=== PATIENT | female | born 1960 | race Caucasian/White ===

== ENCOUNTER 2018-03-21 12:17 | Observation (INO) | payer BC, OTHER ==
[~2018-03-21] VITALS: Ht 172.7 cm; Wt 81.6 kg
[~2018-03-21 12:17] MED LIST: ALPR0.25
[2018-03-21] MEDS ORDERED: ASPIRIN 81 MG TABLET CHEW ONE (12:55)
[2018-03-21] MEDS ORDERED: SODIUM CHLORIDE FLUSH 10ML SYR IVF ONE (13:00)
[2018-03-21] MEDS ORDERED: ASPIRIN 81 MG TABLET CHEW PO ONE (13:00)
[2018-03-21 13:04] LABS: BASOPHILS # (AUTO) 0.03 x10^3/uL (0-0.1); BASOPHILS % (AUTO) 0 % (0-1); EOSINOPHILS # (AUTO) 0.04 x10^3/uL (0-0.4); EOSINOPHILS % (AUTO) 1 % (1-7); LYMPHOCYTES # (AUTO) 2.58 x10^3/uL (1-3.4); LYMPHOCYTES % (AUTO) 35 % (22-44); MD NO; MEAN CORPUSCULAR HEMOGLOBIN 30.6 pg (27.0-34.8); MEAN CORPUSCULAR HGB CONC 34.4 g/dL (32.4-35.8); MEAN CORPUSCULAR VOLUME 89.1 fL (80-100); MEAN PLATELET VOLUME 9.5 fL (7.4-10.4); MONOCYTES # (AUTO) 0.41 x10^3/uL (0.2-0.8); MONOCYTES % (AUTO) 6 % (2-9); NEUTROPHILS # (AUTO) 4.33 x10^3/uL (1.8-6.8); NEUTROPHILS % (AUTO) 59 % (42-75); PLATELET COUNT 231 x10^3/uL (130-400); RED BLOOD COUNT 5.29 x10^6/uL (3.82-5.3)
[2018-03-21 13:10] LABS: ALBUMIN 4.1 g/dL (3.4-5.0); ANION GAP 8 mmol/L (5-15); CHLORIDE 109 mmol/L (98-107); CREATININE 0.72 mg/dL (0.55-1.02)
[2018-03-21 13:15] LABS: TROPONIN I < 0.015 ng/mL (0.000-0.045)
[2018-03-21] MEDS ORDERED: LORA-445 PO (17:05)
[2018-03-21] MEDS ORDERED: ONDANSETRON 2MG/ML, 2ML IVPush PRN (18:00)
[2018-03-21] MEDS ORDERED: ENOXAPARIN 40 MG/0.4 ML SQ SCH (18:00)
[2018-03-21] MEDS ORDERED: ACETAMINOPHEN 325 MG TABLET PO PRN (18:00)
[2018-03-21 18:06] VITALS: BP 85/50
[2018-03-21 20:00] VITALS: BP 107/73
[2018-03-21 20:01] VITALS: BP 117/81
[2018-03-21 20:02] VITALS: BP 118/72
[2018-03-21 21:17] LABS: TROPONIN I < 0.015 ng/mL (0.000-0.045)
[2018-03-22 03:02] VITALS: BP 93/63
[2018-03-22 03:33] LABS: HCT (SEDRATE) 44.6 % (34.6-47.8)
[2018-03-22 03:46] LABS: CHOLESTEROL, TOTAL 172 mg/dL (140-239); TRIGLYCERIDES 164 mg/dL (50-200); VLDL CHOLESTEROL 33 mg/dL (0-25)
[2018-03-22 03:49] LABS: CHOL/HDL RATIO 4.6; HDL CHOL % 22 % (28-40); HDL CHOLESTEROL (DIRECT) 37 mg/dL (40-60); LDL CHOLESTEROL,CALCULATED 102 mg/dL (54-169); LDL/HDL RATIO 2.8 (0.5-3.0); TROPONIN I < 0.015 ng/mL (0.000-0.045)
[2018-03-22 07:45] VITALS: BP_SYST 101; BP_SYST 94; BP_SYST 95; BP_DIAS 62; BP_DIAS 63; BP_DIAS 70
[2018-03-22] MEDS ORDERED: REGADENOSON 0.4 MG/5 ML SYRINGE ONE (09:17)
[2018-03-22] MEDS ORDERED: FLUTICASONE NASAL SPRAY 16GM NAS SCH (11:30)
[2018-03-22] MEDS ORDERED: CYANOCOBALOMIN 100MCG TABLET PO SCH (11:30)
[2018-03-22] MEDS ORDERED: CYANOCOBALAMIN 1,000 MCG/ML, 1ML IM ONE (11:30)
[2018-03-22] MEDS ORDERED: LORATADINE 10 MG TABLET PO SCH (11:30)
[2018-03-22] MEDS ORDERED: FAMOTIDINE 20 MG TABLET PO SCH (11:30)
[2018-03-22] MEDS ORDERED: OMNIPAQUE 350 MG/ML, 100ML BOTTLE ONE (11:51)
[2018-03-22 13:24] VITALS: BP 117/78
[2018-03-22] MEDS ORDERED: FLUT16SP NAS (16:05)
[2018-03-22] MEDS ORDERED: CYAN100T PO (16:05)
[2018-03-22] MEDS ORDERED: FAMO20TA7 PO (16:05)
[2018-03-22] MEDS ORDERED: LORA10TA75 PO (16:05)
== END 2018-03-22 17:10 | disposition home or self-care (01) ==
LOC: ED 13:51 → EDIP 16:47 → SUATTDRO 17:08 → 5SO 18:03 → DCLOUNGE 03-22 17:00
PROVIDERS: ADMIT Internal Medicine; ATTEND Internal Medicine
DX: R07.89 Other chest pain (principal); R53.1 Weakness; R06.02 Shortness of breath; F41.1 Generalized anxiety disorder; J30.2 Other seasonal allergic rhinitis; M40.50 Lordosis, unspecified, site unspecified; M50.30 Other cervical disc degeneration, unspecified cervical region; F17.210 Nicotine dependence, cigarettes, uncomplicated; Z23 Encounter for immunization
CPT/HCPCS: 36415; 70486; 71045; 71275; 72125; 78452; 80048; 80061; 82040; 82306; 82607; 83880; 84443; 84484; 85025; 85651; 90471; 90656; 93005; 93017; 96372; 99285; A9502; C9898; G0378; J1650; J2785; J3420; Q9967

== ENCOUNTER 2018-04-01 15:28 | Emergency (ER) | payer OTHER ==
[~2018-04-01] VITALS: Ht 172.7 cm; Wt 77.5 kg
[~2018-04-01 15:28] MED LIST changes: +CYAN100T PO; +FAMO20TA7 PO; +FLUT16SP NAS; +LORA-445 PO; +LORA10TA75 PO
[2018-04-01 15:58] LABS: MEAN CORPUSCULAR HEMOGLOBIN 29.5 pg (27.0-34.8); MEAN CORPUSCULAR HGB CONC 32.9 g/dL (32.4-35.8); MEAN CORPUSCULAR VOLUME 89.7 fL (80-100); MEAN PLATELET VOLUME 8.9 fL (7.4-10.4); PLATELET COUNT 263 x10^3/uL (130-400); RED BLOOD COUNT 5.27 x10^6/uL (3.82-5.3)
[2018-04-01] MEDS ORDERED: LORazepam 2 MG/ML, 1ML IVPush ONE ×2 (16:00→17:30)
[2018-04-01] MEDS ORDERED: SODIUM CHLORIDE FLUSH 10ML SYR IVF ONE (16:00)
[2018-04-01] MEDS ORDERED: LORazepam 2 MG/ML, 1ML ONE ×2 (16:00→17:17)
[2018-04-01 16:11] LABS: ALANINE AMINOTRANSFERASE 31 U/L (12-78); ALBUMIN 4.2 g/dL (3.4-5.0); ANION GAP 9 mmol/L (5-15); CHLORIDE 109 mmol/L (98-107); CREATININE 0.88 mg/dL (0.55-1.02)
[2018-04-01 16:15] LABS: ALKALINE PHOSPHATASE 93 U/L (45-117); BILIRUBIN,TOTAL 0.3 mg/dL (0.2-1.0); TOTAL PROTEIN 7.8 g/dL (6.4-8.2); TROPONIN I < 0.015 ng/mL (0.000-0.045)
[2018-04-01 16:24] LABS: BASOPHILS # (AUTO) 0.04 x10^3/uL (0-0.1); BASOPHILS % (AUTO) 1 % (0-1); EOSINOPHILS # (AUTO) 0.08 x10^3/uL (0-0.4); EOSINOPHILS % (AUTO) 1 % (1-7); LYMPHOCYTES # (AUTO) 2.62 x10^3/uL (1-3.4); LYMPHOCYTES % (AUTO) 32 % (22-44); MD SCAN; MONOCYTES # (AUTO) 0.57 x10^3/uL (0.2-0.8); MONOCYTES % (AUTO) 7 % (2-9); NEUTROPHILS # (AUTO) 4.88 x10^3/uL (1.8-6.8); NEUTROPHILS % (AUTO) 60 % (42-75)
[2018-04-01 16:44] LABS: AMPHETAMINE SCREEN, URINE Negative (Negative); BARBITURATE SCREEN, URINE Negative (Negative); BENZODIAZEPINE SCREEN, URINE Negative (Negative); CANNABINOID SCREEN, URINE Negative (Negative); COCAINE SCREEN, URINE Negative (Negative); METHADONE SCREEN, URINE Negative (Negative); OPIATE SCREEN, URINE Negative (Negative)
[2018-04-01] MEDS ORDERED: FAMO20TA7 PO (17:49)
[2018-04-01] MEDS ORDERED: MULT-90 PO (17:51)
[2018-04-01 18:56] LABS: RED CELL DISTRIBUTION WIDTH 13.1 % (9.6-15.2)
[2018-04-01 20:16] VITALS: BP 117/72
== END 2018-04-01 21:54 | disposition left against medical advice (07) ==
LOC: ED 16:21
DX: G62.9 Polyneuropathy, unspecified (principal); F41.9 Anxiety disorder, unspecified; Z87.891 Personal history of nicotine dependence; Z90.710 Acquired absence of both cervix and uterus; Z90.49 Acquired absence of other specified parts of digestive tract
CPT/HCPCS: 36415; 72141; 72148; 80053; 80307; 84484; 85025; 93005; 96374; 96375; 99285; J2060

== ENCOUNTER 2018-04-17 11:07 | Emergency (ER) | payer OTHER ==
[~2018-04-17] VITALS: Ht 172.7 cm; Wt 80.2 kg
[~2018-04-17 11:07] MED LIST changes: +MULT-90 PO
[2018-04-17] MEDS ORDERED: LORazepam 2 MG/ML, 1ML IVPush ONE (11:30)
[2018-04-17 11:58] LABS: BASOPHILS # (AUTO) 0.04 x10^3/uL (0-0.1); BASOPHILS % (AUTO) 1 % (0-1); EOSINOPHILS # (AUTO) 0.09 x10^3/uL (0-0.4); EOSINOPHILS % (AUTO) 1 % (1-7); LYMPHOCYTES # (AUTO) 2.13 x10^3/uL (1-3.4); LYMPHOCYTES % (AUTO) 29 % (22-44); MD NO; MEAN CORPUSCULAR HEMOGLOBIN 30.4 pg (27.0-34.8); MEAN CORPUSCULAR HGB CONC 33.7 g/dL (32.4-35.8); MEAN CORPUSCULAR VOLUME 90.1 fL (80-100); MEAN PLATELET VOLUME 9.3 fL (7.4-10.4); MONOCYTES % (AUTO) 5 % (2-9); NEUTROPHILS % (AUTO) 64 % (42-75); PLATELET COUNT 228 x10^3/uL (130-400); RED BLOOD COUNT 5.19 x10^6/uL (3.82-5.3); RED CELL DISTRIBUTION WIDTH 13.4 % (9.6-15.2)
[2018-04-17] MEDS ORDERED: LORazepam 2 MG/ML, 1ML ONE (12:05)
[2018-04-17 12:12] LABS: ALBUMIN 4.1 g/dL (3.4-5.0); ANION GAP 7 mmol/L (5-15); CALCIUM 8.6 mg/dL (8.5-10.1); CHLORIDE 112 mmol/L (98-107)
[2018-04-17 12:18] LABS: CREATININE 0.78 mg/dL (0.55-1.02); TROPONIN I < 0.015 ng/mL (0.000-0.045)
[2018-04-17 13:09] VITALS: BP 119/62
== END 2018-04-17 13:20 | disposition home or self-care (01) ==
LOC: ED 11:12
DX: R20.2 Paresthesia of skin (principal); M50.30 Other cervical disc degeneration, unspecified cervical region; R53.1 Weakness; F41.1 Generalized anxiety disorder; G62.9 Polyneuropathy, unspecified; Z87.891 Personal history of nicotine dependence
CPT/HCPCS: 36415; 80048; 82040; 84484; 85025; 93005; 96374; 99285; J2060

== ENCOUNTER 2018-05-27 18:19 | Emergency (ER) | payer OTHER ==
[~2018-05-27] VITALS: Ht 172.7 cm; Wt 77.4 kg
[2018-05-27] MEDS ORDERED: KETOROLAC 30 MG/1 ML IVPush ONE (19:00)
[2018-05-27] MEDS ORDERED: ONDANSETRON 2MG/ML, 2ML IVPush ONE (19:00)
[2018-05-27] MEDS ORDERED: SODIUM CHLORIDE FLUSH 10ML SYR IVF ONE (19:00)
[2018-05-27 19:24] LABS: RAPID INFLUENZA A Negative (Negative); RAPID INFLUENZA B Negative (Negative)
[2018-05-27 19:26] LABS: BASOPHILS # (AUTO) 0.05 x10^3/uL (0-0.1); BASOPHILS % (AUTO) 1 % (0-1); EOSINOPHILS # (AUTO) 0.13 x10^3/uL (0-0.4); EOSINOPHILS % (AUTO) 1 % (1-7); LYMPHOCYTES # (AUTO) 3.16 x10^3/uL (1-3.4); LYMPHOCYTES % (AUTO) 35 % (22-44); MD NO; MEAN CORPUSCULAR HEMOGLOBIN 30.3 pg (27.0-34.8); MEAN CORPUSCULAR HGB CONC 33.9 g/dL (32.4-35.8); MEAN CORPUSCULAR VOLUME 89.3 fL (80-100); MEAN PLATELET VOLUME 8.9 fL (7.4-10.4); MONOCYTES # (AUTO) 0.53 x10^3/uL (0.2-0.8); MONOCYTES % (AUTO) 6 % (2-9); NEUTROPHILS # (AUTO) 5.17 x10^3/uL (1.8-6.8); NEUTROPHILS % (AUTO) 57 % (42-75); PLATELET COUNT 273 x10^3/uL (130-400); RED BLOOD COUNT 4.88 x10^6/uL (3.82-5.3); RED CELL DISTRIBUTION WIDTH 13.2 % (9.6-15.2)
[2018-05-27 19:40] LABS: ALANINE AMINOTRANSFERASE 18 U/L (12-78); ALBUMIN 3.8 g/dL (3.4-5.0); ANION GAP 10 mmol/L (5-15); CALCIUM 8.8 mg/dL (8.5-10.1); CHLORIDE 110 mmol/L (98-107); CREATININE 0.84 mg/dL (0.55-1.02)
[2018-05-27 19:44] LABS: ALKALINE PHOSPHATASE 76 U/L (45-117); BILIRUBIN,TOTAL 0.3 mg/dL (0.2-1.0); TOTAL PROTEIN 6.8 g/dL (6.4-8.2); TROPONIN I < 0.015 ng/mL (0.000-0.045)
[2018-05-27] MEDS ORDERED: ONDANSETRON 2MG/ML, 2ML ONE (19:53)
[2018-05-27] MEDS ORDERED: KETOROLAC 30 MG/1 ML ONE (19:53)
[2018-05-27 20:16] LABS: CULTURE INDICATED? YES; MICROSCOPIC AUTO
[2018-05-27] MEDS ORDERED: CEFDINIR 300 MG CAPSULE ONE (21:17)
[2018-05-27] MEDS ORDERED: CEFDINIR 300 MG CAPSULE PO SCH (21:30)
[2018-05-27 21:32] VITALS: BP 119/78
== END 2018-05-27 21:35 | disposition home or self-care (01) ==
LOC: ED 19:23
DX: N30.00 Acute cystitis without hematuria (principal)
CPT/HCPCS: 36415; 71045; 80053; 81001; 84484; 85025; 87086; 87400; 93005; 96374; 99284; J1885